=== PATIENT | male | born 1945 | race Caucasian/White ===

== ENCOUNTER 2021-11-27 13:40 | Outpatient (CLI) | payer MEDICARE | END 2021-11-27 13:41 | disposition home or self-care (01) | LOC: BICCT 13:40 | PROVIDERS: ATTEND Registered Nurse | DX: Z12.2 Encounter for screening for malignant neoplasm of respiratory organs (principal); F17.210 Nicotine dependence, cigarettes, uncomplicated | CPT/HCPCS: 71271 ==

== ENCOUNTER 2023-01-31 09:17 | Outpatient (CLI) | payer MEDICARE | END 2023-01-31 09:18 | disposition home or self-care (01) | LOC: BICCT 09:17 | PROVIDERS: ATTEND Registered Nurse | DX: Z12.2 Encounter for screening for malignant neoplasm of respiratory organs (principal); F17.210 Nicotine dependence, cigarettes, uncomplicated; J84.10 Pulmonary fibrosis, unspecified | CPT/HCPCS: 71271 ==